=== PATIENT | male | born 1945 | race Caucasian/White ===

== ENCOUNTER 2022-03-26 20:33 | Emergency (ER) | payer MEDICARE ==
[~2022-03-26] VITALS: Ht 165.1 cm; Wt 77.1 kg
[2022-03-26 21:21] VITALS: BP 148/74
[2022-03-26] MEDS ORDERED: SODIUM CHLORIDE 0.9% 1,000 ML IV ONE (22:45)
[2022-03-26 23:43] LABS: HEMATOCRIT. 39.8 % (42.0-52.0); HEMOGLOBIN. 13.2 g/dL (14.0-18.0); MEAN CORPUSCULAR HEMOGLOBIN 26.2 pg (28.0-32.0); MEAN CORPUSCULAR VOLUME 79.1 fL (80.0-94.0); MEAN PLATELET VOLUME 8.6 fl (7.4-10.4); PLATELET 171 x1000/uL (130-400); RED BLOOD CELL COUNT 5.03 mill/uL (4.7-6.1)
[2022-03-26 23:57] LABS: CHLORIDE 91 mEq/L (98-107)
[2022-03-27] MEDS ORDERED: CEFTRIAXONE 1 G PREMIX 50 ML IV NR (00:45)
[2022-03-27 00:53] LABS: PLATELET ESTIMATE NORMAL
== END 2022-03-27 05:17 | disposition left against medical advice (07) ==
LOC: ER 20:33
DX: R31.9 Hematuria, unspecified (principal); R30.0 Dysuria; I10 Essential (primary) hypertension; E11.9 Type 2 diabetes mellitus without complications; E78.00 Pure hypercholesterolemia, unspecified; E03.9 Hypothyroidism, unspecified; M10.9 Gout, unspecified; Z90.49 Acquired absence of other specified parts of digestive tract
CPT/HCPCS: 36415; 74176; 80053; 83605; 83690; 85025; 99284; J7030